=== PATIENT | male | born 1950 | race Caucasian/White ===

== ENCOUNTER 2021-05-07 18:11 | Inpatient (IN) | payer MEDICAID ==
[~2021-05-07] VITALS: Ht 182.9 cm; Wt 81.4 kg
[~2021-05-07 18:11] MED LIST: ALDACTONE 25MG25 MG PO; ASPIRIN EC81 MG PO; ATORVASTATIN CA20 MG PO; BRILINTA 90 MG90 MG PO; CARVEDILOL3.125 MG PO; ENTRESTO 24 MG1 EACH PO; FERROUS SULFAT325 M2 PO; FUROSEMIDE20 MG PO; GLIPIZIDE5 MG PO; GLUCOPHAGE 500500 MG PO; LASIX40 MG PO; POTASSIUM CHLO20 ME1 PO; SPIRONOLACTONE25 MG PO
[2021-05-07 19:02] LABS: RED BLOOD COUNT 4.95 M/UL (4.20-5.50); WHITE BLOOD COUNT 6.5 K/UL (4.5-11.0)
[2021-05-08 04:15] LABS: HEMOGLOBIN 13.7 gm/dl (14.0-17.5); RED BLOOD COUNT 4.86 M/UL (4.20-5.50)
[2021-05-08] MEDS ORDERED: BUMETANIDE1 MG PO (11:22)
[2021-05-08] MEDS ORDERED: ENTRESTO 24 MG1 EACH PO (12:32)
[2021-05-08] MEDS ORDERED: ASPIRIN EC81 MG PO (12:33)
[2021-05-11 05:33] LABS: HEMOGLOBIN 14.2 gm/dl (14.0-17.5); RED BLOOD COUNT 5.11 M/UL (4.20-5.50); WHITE BLOOD COUNT 5.9 K/UL (4.5-11.0)
[2021-05-12] MEDS ORDERED: ATORVASTATIN CA40 MG PO (14:09)
[2021-05-12] MEDS ORDERED: METOPROLOL SUCC25 MG PO (14:09)
[2021-05-12] MEDS ORDERED: BUMETANIDE2 MG PO (14:59)
== END 2021-05-12 15:41 | disposition home or self-care (01) | DRG 291 ==
LOC: ER1 18:11 → CDU 20:12 → PROG CARE 20:12
PROVIDERS: Internal Medicine; Internal Medicine Cardiovascular Disease; Physician Assistant; ADMIT Internal Medicine
PROC: 3E043XZ Introduction of Vasopressor into Central Vein, Percutaneous Approach (ICD-10-PCS; principal; 2021-05-07)
PROC: B24BZZZ Ultrasonography of Heart with Aorta (ICD-10-PCS; 2021-05-08)
DX: I13.0 Hypertensive heart and chronic kidney disease with heart failure and stage 1 through stage 4 chronic kidney disease, or unspecified chronic kidney disease (principal); J96.01 Acute respiratory failure with hypoxia; I50.43 Acute on chronic combined systolic (congestive) and diastolic (congestive) heart failure; E87.1 Hypo-osmolality and hyponatremia; Z20.822 Contact with and (suspected) exposure to COVID-19; E87.2 Acidosis; N17.9 Acute kidney failure, unspecified; E87.3 Alkalosis; I08.3 Combined rheumatic disorders of mitral, aortic and tricuspid valves; R74.01 Elevation of levels of liver transaminase levels; I50.813 Acute on chronic right heart failure; I25.5 Ischemic cardiomyopathy; I44.7 Left bundle-branch block, unspecified; E78.5 Hyperlipidemia, unspecified; E11.22 Type 2 diabetes mellitus with diabetic chronic kidney disease; E87.6 Hypokalemia; N18.30 Chronic kidney disease, stage 3 unspecified; I25.10 Atherosclerotic heart disease of native coronary artery without angina pectoris; Z95.810 Presence of automatic (implantable) cardiac defibrillator; Z91.14 Patient's other noncompliance with medication regimen; Z95.5 Presence of coronary angioplasty implant and graft; Z82.49 Family history of ischemic heart disease and other diseases of the circulatory system; Z83.3 Family history of diabetes mellitus; Z88.8 Allergy status to other drugs, medicaments and biological substances
CPT/HCPCS: ECHO; 36415; 36600; 71045; 80048; 80053; 81001; 82550; 82553; 82803; 82962; 83036; 83605; 83874; 83880; 84439; 84443; 84484; 85025; 85027; 93005; 93306; 94760; 97116; 97162; 97165; 97530; 99285; J1650; J1940; J3480; U0002